=== PATIENT | female | born 1990 | race Two or more races ===

== ENCOUNTER → 2023-02-14 | Outpatient (CLI) | payer OTHER | END | disposition home or self-care (01) | LOC: RX STUDY 10:28 | DX: N91.2 Amenorrhea, unspecified (principal); N93.9 Abnormal uterine and vaginal bleeding, unspecified; Q50.6 Other congenital malformations of fallopian tube and broad ligament ==

== ENCOUNTER 2024-02-01 14:55 | Emergency (ER) | payer OTHER ==
[~2024-02-01] VITALS: Ht 167.6 cm; Wt 81.6 kg
[2024-02-01] MEDS ORDERED: PRENATAL + DHA1 EAC1 (15:13)
[2024-02-01] MEDS ORDERED: ONDANSETRON HCL 2 MG/ML VIAL ONE (16:56)
[2024-02-01] MEDS ORDERED: ONDANSETRON HCL 2 MG/ML VIAL IV ONE (17:00)
[2024-02-01] MEDS ORDERED: RINGERS SOLUTION,LACTATED 1,000 ML IV ONE (17:00)
[2024-02-01 17:28] LABS: HEMATOCRIT 38.5 % (36.0-45.00); HEMOGLOBIN 13.6 g/dL (12.0-15.00); MEAN CELL VOLUME 85.1 fL (80.00-100.00); MEAN CORPUSCULAR HEMOGLOBIN 30.2 pg (27.00-32.0); MEAN CORPUSCULAR HGB CONC 35.4 g/dl (32.0-36.0); PLATELET COUNT 334 K/uL (150-450); RED BLOOD COUNT 4.53 M/uL (4.00-6.00); RED CELL DISTRIBUTION WIDTH 13.5 % (11.5-14.5)
[2024-02-01 17:44] LABS: INR 1.1; PARTIAL THROMBOPLASTIN TIME 26.1 SECONDS (22.0-34.0); PROTHROMBIN TIME 11.9 SECONDS (9.0-11.5)
[2024-02-01 18:05] LABS: ALBUMIN 3.8 gm/dL (3.4-5.0); BILIRUBIN TOTAL 1.41 mg/dL (0.3-1.2); CALCIUM 9.1 mg/dL (8.5-10.1); CREATININE SERUM 0.71 mg/dL (0.55-1.02); GFR 94.23; GLOBULINA 4.3 G/DL (2.4-3.5); POTASSIUM 3.13 mEq/L (3.5-5.1); TOTAL PROTEIN 8.1 gm/dL (6.4-8.2)
[2024-02-01 20:20] LABS: URINE APPEARANCE Clear; URINE BILIRRUBIN Negative (NEGATIVE); URINE BLOOD Negative; URINE COLOR Dark Yellow; URINE GLUCOSE Negative (NEGATIVE); URINE LEUKOCYTE Trace; URINE NITRATE Negative; URINE PROTEIN 30 (NEGATIVE)
[2024-02-01 20:24] LABS: URINE EPITHELIAL CELLS 16.5 uL (0.0-38.8); URINE RBC 10.6 uL (0.0-20.8); URINE WBC 4.4 uL (0.0-23.2)
[2024-02-01 20:41] LABS: URINE CAST 0.61 uL (0.0-1.40); URINE KETONE 40 (NEGATIVE)
[2024-02-01] MEDS ORDERED: PROMETHAZINE HCL 50 MG/ML AMPUL IM ONE ×2 (20:45→20:47)
[2024-02-01] MEDS ORDERED: FAMOTIDINE/PF 20 MG/2 ML VIAL IV PUSH ONE (20:45)
[2024-02-01] MEDS ORDERED: FAMOTIDINE/PF 20 MG/2 ML VIAL ONE (20:47)
== END 2024-02-01 23:36 | disposition home or self-care (01) ==
LOC: ER 14:56
PROVIDERS: General Practice
DX: O21.8 Other vomiting complicating pregnancy (principal); Z20.822 Contact with and (suspected) exposure to COVID-19; N20.0 Calculus of kidney; O99.891 Other specified diseases and conditions complicating pregnancy

== ENCOUNTER 2024-05-03 09:53 | Outpatient (CLI) | payer OTHER ==
[~2024-05-03] VITALS: Ht 167.6 cm; Wt 77.1 kg
[2024-05-03 08:59] VITALS: BP 107/74
[~2024-05-03 09:53] MED LIST: PRENATAL + DHA1 EAC1
[2024-05-03] MEDS ORDERED: TERBUTALINE SULFATE 1 MG/ML AMPUL SUBCUTANEO ONE (10:15)
[2024-05-03] MEDS ORDERED: RINGERS SOLUTION,LACTATED 1,000 ML IV SCH (10:15)
[2024-05-03 11:11] LABS: HEMATOCRIT 32.9 % (36.0-45.00); HEMOGLOBIN 11.8 g/dL (12.0-15.00); MEAN CELL VOLUME 86.8 fL (80.00-100.00); MEAN CORPUSCULAR HEMOGLOBIN 31.1 pg (27.00-32.0); MEAN CORPUSCULAR HGB CONC 35.8 g/dl (32.0-36.0); PLATELET COUNT 259 K/uL (150-450); RED BLOOD COUNT 3.79 M/uL (4.00-6.00); RED CELL DISTRIBUTION WIDTH 13.7 % (11.5-14.5)
[2024-05-03 11:13] LABS: URINE APPEARANCE Clear; URINE BILIRRUBIN Negative (NEGATIVE); URINE BLOOD Negative; URINE COLOR Yellow; URINE GLUCOSE Negative (NEGATIVE); URINE KETONE Negative (NEGATIVE); URINE LEUKOCYTE Negative; URINE NITRATE Negative; URINE PROTEIN Negative (NEGATIVE); URINE UROBILINOGEN 0.2 E.U./dl
[2024-05-03 11:17] LABS: URINE BACTERIA 560.3 uL (0.0-1933); URINE EPITHELIAL CELLS 8.1 uL (0.0-38.8); URINE WBC 6.7 uL (0.0-23.2)
[2024-05-03] MEDS ORDERED: KETOROLAC TROMETHAMINE 60 MG VIAL IM STA (11:17)
[2024-05-03 11:27] LABS: URINE RBC 1.3 uL (0.0-20.8)
[2024-05-03 11:28] VITALS: BP 106/71
[2024-05-03 12:23] LABS: ALBUMIN 2.9 gm/dL (3.4-5.0); BILIRUBIN TOTAL 0.34 mg/dL (0.3-1.2); CALCIUM 8.4 mg/dL (8.5-10.1); CREATININE SERUM 0.47 mg/dL (0.55-1.02); GFR 150.79; GLOBULINA 3.3 G/DL (2.4-3.5); POTASSIUM 3.82 mEq/L (3.5-5.1); TOTAL PROTEIN 6.2 gm/dL (6.4-8.2)
[2024-05-03 15:07] VITALS: BP 97/62
[2024-05-03 18:51] VITALS: BP 97/63
[2024-05-03 23:16] VITALS: BP 101/60
[2024-05-03] MEDS ORDERED: KETOROLAC TROMETHAMINE 60 MG VIAL IM ONE (23:45)
[2024-05-03] MEDS ORDERED: FAMOTIDINE/PF 20 MG/2 ML VIAL IV PUSH ONE (23:45)
[2024-05-04 03:11] VITALS: BP 105/65
[2024-05-04 07:10] VITALS: BP 105/55
[2024-05-04 07:58] VITALS: BP 105/55
== END 2024-05-04 07:58 | disposition home or self-care (01) ==
LOC: OBS/DEL 09:53
PROVIDERS: ATTEND Specialist
DX: O34.12 Maternal care for benign tumor of corpus uteri, second trimester (principal); O43.219 Placenta accreta, unspecified trimester; O60.00 Preterm labor without delivery, unspecified trimester; O34.10 Maternal care for benign tumor of corpus uteri, unspecified trimester; Z3A.21 21 weeks gestation of pregnancy

== ENCOUNTER → 2024-05-27 | Emergency (ER) | payer OTHER ==
[~2024-05-27] VITALS: Ht 167.6 cm; Wt 81.6 kg
== END | disposition left against medical advice (07) ==
LOC: ER 11:42
DX: Z53.21 Procedure and treatment not carried out due to patient leaving prior to being seen by health care provider (principal)

== ENCOUNTER 2024-08-31 22:20 | Inpatient (IN) | payer OTHER ==
[~2024-08-31] VITALS: Ht 167.6 cm; Wt 3.2 kg
[2024-08-31 22:29] VITALS: BP 137/76
[2024-08-31] MEDS ORDERED: AMPICILLIN SODIUM 2,000 MG VIAL IV ONE (22:30)
[2024-08-31] MEDS ORDERED: RINGERS SOLUTION,LACTATED 1,000 ML IV SCH (22:30)
[2024-08-31 22:36] VITALS: BP 137/76
[2024-08-31 23:08] LABS: HEMATOCRIT 37.8 % (36.0-45.00); MEAN CELL VOLUME 85.6 fL (80.00-100.00); MEAN CORPUSCULAR HEMOGLOBIN 29.4 pg (27.00-32.0); MEAN CORPUSCULAR HGB CONC 34.3 g/dl (32.0-36.0); PLATELET COUNT 246 K/uL (150-450); RED BLOOD COUNT 4.42 M/uL (4.00-6.00); RED CELL DISTRIBUTION WIDTH 14.1 % (11.5-14.5)
[2024-08-31 23:21] LABS: URINE APPEARANCE Clear; URINE BILIRRUBIN Negative (NEGATIVE); URINE BLOOD Negative; URINE COLOR Yellow; URINE GLUCOSE Negative (NEGATIVE); URINE KETONE Trace (NEGATIVE); URINE LEUKOCYTE Negative; URINE NITRATE Negative; URINE PROTEIN Negative (NEGATIVE); URINE UROBILINOGEN 0.2 E.U./dl
[2024-08-31 23:25] LABS: URINE BACTERIA 2040.2 uL (0.0-1933); URINE EPITHELIAL CELLS 16.9 uL (0.0-38.8); URINE WBC 33.7 uL (0.0-23.2)
[2024-08-31 23:41] LABS: URINE CAST 0.29 uL (0.0-1.40)
[2024-09-01] VITALS: BP 135/71
[2024-09-01] MEDS ORDERED: AMPICILLIN SODIUM 1,000 MG VIAL IV SCH (01:00)
[2024-09-01 07:09] VITALS: BP 125/81
[2024-09-01 07:30] VITALS: BP 125/81
[2024-09-01] MEDS ORDERED: ERYTHROMYCIN BASE OPHT 1GM EACH TUBE OP ONE (09:29)
[2024-09-01] MEDS ORDERED: OXYTOCIN 10 UNITS/ML VIAL ONE (09:29)
[2024-09-01 09:59] LABS: INR 0.96; PARTIAL THROMBOPLASTIN TIME 25.9 SECONDS (22.0-34.0); PROTHROMBIN TIME 10.5 SECONDS (9.0-11.5)
[2024-09-01 10:06] LABS: ALBUMIN 2.6 gm/dL (3.4-5.0); BILIRUBIN TOTAL 0.43 mg/dL (0.3-1.2); CALCIUM 8.7 mg/dL (8.5-10.1); CREATININE SERUM 0.47 mg/dL (0.55-1.02); GFR 150.79; GLOBULINA 3.6 G/DL (2.4-3.5); POTASSIUM 3.97 mEq/L (3.5-5.1); TOTAL PROTEIN 6.2 gm/dL (6.4-8.2)
[2024-09-01] MEDS ORDERED: MORPHINE SULFATE 4 MG/ML CARTRIDGE IV PRN (11:00)
[2024-09-01] MEDS ORDERED: MORPHINE SULFATE 4 MG/ML VIAL IV ONE ×2 (12:40→13:20)
[2024-09-01] MEDS ORDERED: AMPICILLIN SODIUM 1,000 MG VIAL ONE (14:37)
[2024-09-01 16:35] VITALS: BP 121/81
[2024-09-02 00:11] VITALS: BP 111/72
[2024-09-02 06:24] LABS: HEMATOCRIT 40.1 % (36.0-45.00); HEMOGLOBIN 13.4 g/dL (12.0-15.00); MEAN CELL VOLUME 87.1 fL (80.00-100.00); MEAN CORPUSCULAR HGB CONC 33.3 g/dl (32.0-36.0); PLATELET COUNT 219 K/uL (150-450); RED CELL DISTRIBUTION WIDTH 14.5 % (11.5-14.5)
[2024-09-02 07:00] VITALS: BP 130/80
[2024-09-02] MEDS ORDERED: IBUprofen 800 MG TABLET PO PRN (07:45)
[2024-09-02] MEDS ORDERED: ACETAMINOPHEN 500 MG GEL..CAP PO PRN (07:45)
[2024-09-02 15:00] VITALS: BP 134/90
[2024-09-03 02:42] VITALS: BP 138/69
[2024-09-03 08:16] VITALS: BP 135/80
[2024-09-03 16:00] VITALS: BP 116/74
[2024-09-04 00:23] VITALS: BP 118/74
[2024-09-04 08:05] VITALS: BP 120/79
[2024-09-04] MEDS ORDERED: IBUPROFEN800 MG PO (09:25)
== END 2024-09-04 15:13 | disposition home or self-care (01) | DRG 788 ==
LOC: OBS/DEL 22:20 → LDR 09-01 07:11 → OBS/DEL 09-01 07:11 → OB/GYN 09-01 07:11 → O/R 09-01 09:22 → LDR 09-01 09:30 → O/R 09-01 10:23 → OB/GYN 09-01 12:50
PROVIDERS: ADMIT Specialist; ATTEND Specialist
PROC: 4A1HXCZ Monitoring of Products of Conception, Cardiac Rate, External Approach (ICD-10-PCS; 2024-09-01)
PROC: 10D00Z1 Extraction of Products of Conception, Low, Open Approach (ICD-10-PCS; principal; 2024-09-01 10:30)
DX: O36.8330 Maternal care for abnormalities of the fetal heart rate or rhythm, third trimester, not applicable or unspecified (principal); Z3A.38 38 weeks gestation of pregnancy; Z37.0 Single live birth